=== PATIENT | female | born 1930 ===

== ENCOUNTER 2020-01-23 11:52 | Inpatient (IN) | payer OTHER ==
[~2020-01-23] VITALS: Ht 152.4 cm; Wt 68.0 kg
[~2020-01-23 11:52] MED LIST: ARICEPT10 MG PO; ATORVASTATIN CA40 MG PO; BIOTECT PLUS L473 ML PO; COZAAR25 MG PO; ECOTRIN81 MG PO; GLIMEPIRIDE4 MG PO; LEVEMIR100 U/ML SQ; LEVOTHROID25 MCG PO; PRE-PROTEIN236.5 ML PO; TOPROL XL25 M1 PO
[2020-01-23] MEDS ORDERED: PAXIL20 MG (12:17)
[2020-01-23] MEDS ORDERED: PEPCID20 MG (12:17)
[2020-01-23] MEDS ORDERED: ZANAFLEX4 M1 (12:17)
[2020-02-02] MEDS ORDERED: TUSSIN DM LIQU118 ML PO (12:13)
[2020-02-02] MEDS ORDERED: BENZONATATE200 M1 PO (12:14)
[2020-02-02] MEDS ORDERED: PANTOPRAZOLE SO40 MG PO (12:15)
[2020-02-02] MEDS ORDERED: COLACE100 MG PO (12:16)
== END 2020-02-02 18:32 | disposition home or self-care (01) | DRG 377 ==
LOC: ER 11:52 → SEC-K 19:54 → MEDI 19:54 → MEDJ 01-24 15:06
PROVIDERS: ADMIT Internal Medicine; ATTEND Internal Medicine
PROC: BW21ZZZ Computerized Tomography (CT Scan) of Abdomen and Pelvis (ICD-10-PCS; principal; 2020-01-23)
PROC: 02HV33Z Insertion of Infusion Device into Superior Vena Cava, Percutaneous Approach (ICD-10-PCS; 2020-01-25)
PROC: CD271ZZ Tomographic (Tomo) Nuclear Medicine Imaging of Gastrointestinal Tract using Technetium 99m (Tc-99m) (ICD-10-PCS; 2020-01-25)
PROC: 30233N1 Transfusion of Nonautologous Red Blood Cells into Peripheral Vein, Percutaneous Approach (ICD-10-PCS; 2020-01-25)
PROC: 4A033R1 Measurement of Arterial Saturation, Peripheral, Percutaneous Approach (ICD-10-PCS; 2020-01-25)
PROC: CB2YYZZ Tomographic (Tomo) Nuclear Medicine Imaging of Respiratory System using Other Radionuclide (ICD-10-PCS; 2020-01-29)
DX: K57.31 Diverticulosis of large intestine without perforation or abscess with bleeding (principal); J15.7 Pneumonia due to Mycoplasma pneumoniae; B96.0 Mycoplasma pneumoniae [M. pneumoniae] as the cause of diseases classified elsewhere; G30.8 Other Alzheimer's disease; F02.80 Dementia in other diseases classified elsewhere, unspecified severity, without behavioral disturbance, psychotic disturbance, mood disturbance, and anxiety; Z20.828 Contact with and (suspected) exposure to other viral communicable diseases; E11.65 Type 2 diabetes mellitus with hyperglycemia; Z79.4 Long term (current) use of insulin; E03.9 Hypothyroidism, unspecified; D64.9 Anemia, unspecified